=== PATIENT | male | born 1990 | race African-American/Black ===

== ENCOUNTER 2019-12-18 15:43 | Emergency (ER) | payer OTHER ==
[~2019-12-18] VITALS: Ht 185.4 cm; Wt 72.6 kg
[2019-12-18 16:11] VITALS: BP 124/87
--- NOTE | 2019-12-18 16:41 | NUR ---
Patient discharged to home in stable condition. Written and verbal after care instructions given. Patient verbalizes understanding of instruction.
== END 2019-12-18 16:42 | disposition home or self-care (01) ==
LOC: ER 15:43
DX: F32.9 Major depressive disorder, single episode, unspecified (principal); Z76.0 Encounter for issue of repeat prescription; F41.9 Anxiety disorder, unspecified; Z88.2 Allergy status to sulfonamides